=== PATIENT | female | born 1985 | race Caucasian/White ===

== ENCOUNTER 2016-10-13 20:56 | Emergency (ER) | payer MEDICAID ==
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
[2016-10-13 21:45] LABS: ABSOLUTE BASOPHILS # (AUTO) 0.1 10^3/uL (0.0-0.2); ABSOLUTE EOSINOPHILS # (AUTO) 0.1 10^3/uL (0.0-0.6); ABSOLUTE LYMPHOCYTES (AUTO) 2.1 10^3/uL (0.5-4.7); ABSOLUTE MONOCYTES (AUTO) 0.9 10^3/uL (0.1-1.4); ABSOLUTE NEUT (AUTO) 5.8 10^3/uL (1.7-8.2); BASOPHILS % (AUTO) 0.7 % (0-2); EOSINOPHILS % (AUTO) 1.2 % (0-6); HEMATOCRIT 40.5 % (36.0-47.0); HEMOGLOBIN 13.7 g/dL (12.0-15.5); HGB HCT DIFFERENCE 0.6; LYMPHOCYTES % (AUTO) 23.7 % (13-45); MEAN CORPUSCULAR HEMOGLOBIN 29.5 pg (27.0-33.4); MEAN CORPUSCULAR HGB CONC 33.9 g/dL (32.0-36.0); MEAN CORPUSCULAR VOLUME 87 fl (80-97); MONOCYTES % (AUTO) 10.1 % (3-13); RED BLOOD COUNT 4.66 10^6/uL (3.72-5.28); RED CELL DISTRIBUTION WIDTH 15.3 % (11.5-14.0); SEGMENTED NEUTROPHILS % (AUTO) 64.3 % (42-78)
[2016-10-13 22:03] LABS: ALANINE AMINOTRANSFERASE 85 U/L (9-52); ALBUMIN 4.3 g/dL (3.5-5.0); ALKALINE PHOSPHATASE 77 U/L (38-126); ANION GAP 12 (5-19); ASPARTATE AMINO TRANSFERASE 52 U/L (14-36); BILIRUBIN,TOTAL 0.6 mg/dL (0.2-1.3); BLOOD UREA NITROGEN 12 mg/dL (7-20); CARBON DIOXIDE 26 mmol/L (22-30); CHLORIDE 106 mmol/L (98-107); CREATININE RESULT 0.64 mg/dL (0.52-1.25); GLUCOSE 91 mg/dL (75-110); SODIUM 143.6 mmol/L (137-145); TOTAL PROTEIN 7.2 g/dL (6.3-8.2)
[2016-10-13 22:04] LABS: ALCOHOL < 10 mg/dL (NONE DETECTED)
[2016-10-13 22:38] LABS: APPEARANCE,URINE SLIGHTLY-CLOUDY; BILIRUBIN,URINE NEGATIVE (NEGATIVE); GLUCOSE, URINE NEGATIVE (NEGATIVE); KETONES,URINE NEGATIVE (NEGATIVE); LEUKOCYTE ESTERASE,URINE NEGATIVE (NEGATIVE); NITRITE,URINE NEGATIVE (NEGATIVE); PROTEIN,URINE NEGATIVE (NEGATIVE); URINE SPECIFIC GRAVITY 1.029
[2016-10-13 22:44] LABS: URINE BARBITURATES SCREEN NEGATIVE; URINE METHADONE SCREEN NEGATIVE; URINE OPIATES LOW UNCONFIRMED POSITIVE; URINE PHENCYCLIDINE SCREEN NEGATIVE
[2016-10-14] MEDS: IBUPROFEN 600 MG TABLET PO PRN ×2 (05:35→11:10)
--- NOTE | 2016-10-14 08:02 | EKG REPORT ---
SEVERITY:- NORMAL ECG - SINUS RHYTHM : Confirmed by: Chapincito Shah MD 14-Oct-2016 08:01:55
--- NOTE | 2016-10-14 10:20 | ER Document Report ---
Doctor's Note Notes: 10/14/16 10:19 Rounds: Chart reviewed and patient interviewed. Patient is smiling and interactive and appears to be very happy's morning. Denies feeling suicidal. Has not been on any medications recently, although she was on psychotropic medications in the past area she says she prefers not to take medications. Vital signs are all normal. Labs were positive for opiates and marijuana on her drug screen and very minor elevation of LFTs which is probably of no clinical significance. Patient appears to be medically stable for transfer or discharge. At this time, mental health has suggested patient will likely be discharged home today. Abraham Garcia M.D.
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
[2016-10-14] MEDS ORDERED: NICOTINE 14 MG/24 HR PATCH.TD24 TD ONE (12:48)
[2016-10-14 15:24] VITALS: BP 112/62
== END 2016-10-14 15:24 | disposition home or self-care (01) ==
LOC: ER 20:56
DX: R45.851 Suicidal ideations (principal); F31.9 Bipolar disorder, unspecified; F17.200 Nicotine dependence, unspecified, uncomplicated; Z98.51 Tubal ligation status
CPT/HCPCS: 93005; 99285; 36415; 80307 ×4; 84703; 85025; 80053; 81001; 93010; J3490 ×2

== ENCOUNTER → 2016-11-21 | Outpatient (CLI) | payer MEDICAID | LOC: LAB 16:59 | PROVIDERS: ATTEND Internal Medicine Gastroenterology | DX: R76.8 Other specified abnormal immunological findings in serum (principal) ==

== ENCOUNTER → 2016-11-26 | Outpatient (CLI) | payer MEDICAID ==
[2016-12-01 07:38] LABS: HCV ALPHA 2-MACROGLOBULINS QNT 191 mg/dL (110-276); HCV FIBROSIS SCORE 0.14 (0.00-0.21); HCV FIBROSURE ALT P5P 27 IU/L (0-40); HCV FIBROSURE GGT 22 IU/L (0-60); HCV FIBROSURE HAPTOGLOBIN 69 mg/dL (34-200); HCVFIB APOLIPOPROTEIN A-1 108 mg/dL (116-209); HEPATITIS C GENOTYPE 3 1a (.); NECROINFLAM ACTIVITY GRADE A0-No activity (.)
== END ==
LOC: OD 12:23
PROVIDERS: ATTEND Internal Medicine Gastroenterology
DX: R76.8 Other specified abnormal immunological findings in serum (principal)
CPT/HCPCS: 36415; 81270; 82172; 82247; 82977; 83010; 83883; 84460

== ENCOUNTER 2017-09-27 22:26 | Emergency (ER) | payer MEDICAID ==
[2017-09-27 23:52] LABS: APPEARANCE,URINE SLIGHTLY-CLOUDY; BILIRUBIN,URINE NEGATIVE (NEGATIVE); COLOR,URINE AMBER; GLUCOSE, URINE NEGATIVE (NEGATIVE); KETONES,URINE TRACE mg/dL (NEGATIVE); LEUKOCYTE ESTERASE,URINE NEGATIVE (NEGATIVE); NITRITE,URINE NEGATIVE (NEGATIVE); PROTEIN,URINE 30 mg/dL (NEGATIVE); URINE SPECIFIC GRAVITY 1.029
[2017-09-28 00:04] LABS: URINE BARBITURATES SCREEN NEGATIVE; URINE BENZODIAZEPINES SCREEN NEGATIVE; URINE COCAINE SCREEN UNCONFIRMED POSITIVE; URINE MARIJUANA (THC) SCREEN UNCONFIRMED POSITIVE; URINE METHADONE SCREEN NEGATIVE; URINE PHENCYCLIDINE SCREEN NEGATIVE
--- NOTE | 2017-09-28 00:18 | ER Document Report ---
ED General - General Chief Complaint: Psych Problem Stated Complaint: PSYCH EVAL Time Seen by Provider: 09/27/17 23:52 Notes: Patient is a 32-year-old female presents with complaint of multiple issues. She has a very hard time staying on topic and therefore the exact history is very hard to obtain. She will break midsentence and going to another topic. She does admit to long history of drug use. She says she is a lot of different drugs throughout her lifetime. Most recently she is on heroin and methamphetamine. She does admit that she has been diagnosed with bipolar and schizophrenia in the past. She is currently not on medications for this. She denies any recent fevers or infections. She says that she is not suicidal however she has thought about dying. She is unable to tell me when the last time she did heroin or meth is. When asked about hallucinations or hearing voices the patient initially says "yes". She then changes and says "I talked to myself and answer myself". TRAVEL OUTSIDE OF THE [place] IN LAST 30 DAYS: No - Related Data Allergies/Adverse Reactions: No Known Allergies Allergy (Verified 05/30/16 17:36) Past Medical History - Social History Smoking Status: Unknown if Ever Smoked Frequency of alcohol use: Occasional Drug Abuse: Heroin, Methamphetamine Family History: Reviewed & Not Pertinent - Past Medical History Cardiac Medical History: Denies: Hx Coronary Artery Disease, Hx Heart Attack, Hx Hypertension Pulmonary Medical History: Denies: Hx Asthma, Hx Bronchitis, Hx COPD, Hx Pneumonia Neurological Medical History: Denies: Hx Cerebrovascular Accident Musculoskeltal Medical History: Denies Hx Arthritis Psychiatric Medical History: Reports: Hx Bipolar Disorder Past Surgical History: Reports: Hx Tubal Ligation - Immunizations Hx Diphtheria, Pertussis, Tetanus Vaccination: No Review of Systems - Review of Systems Notes: My Normal Review Basic REVIEW OF SYSTEMS: CONSTITUTIONAL : Denies fever, chills, or sweats. Denies recent illness. EENT: Denies eye, ear, throat, or mouth pain or symptoms. Denies nasal or sinus congestion. RESPIRATORY: Denies cough, cold, or chest congestion. Denies shortness of breath, difficulty breathing, or wheezing. GASTROINTESTINAL: Denies abdominal pain. Denies nausea, vomiting, or diarrhea. Denies constipation. Last BM: GENITOURINARY: Denies difficulty urinating, painful urination, burning, frequency, or blood in urine. MUSCULOSKELETAL: Patient initially says that she has some body pain. She believes that this may be due to her history of heroin use. SKIN: Denies rash or skin lesions. NEUROLOGICAL: Denies altered mental status or loss of consciousness. Denies headache. Denies weakness or paralysis or loss of use of either side. Denies problems with gait or speech. Denies sensory or motor loss. Psychiatric: Flight of ideas. Chronic drug use. ALL OTHER SYSTEMS REVIEWED AND NEGATIVE. Physical Exam - Notes Notes: General Appearance: Well nourished, alert, cooperative, no acute distress, no obvious discomfort. Vitals: reviewed, See vital signs table. Eyes: PERRL, EOMI, Conjuctiva clear Lungs: No wheezing, No rales, No rhonci, No accessory muscle use, good air exchange bilaterally. Heart: Normal rate, Regular rythm, No murmur, no rub Abdomen: Normal BS, soft, No rigidity, No abdominal tenderness, No guarding, no rebound, no abdominal masses, no organomegaly Extremities: strength 5/5 in all extremities, good pulses in all extremities, no swelling or tenderness in the extremities, no edema. Skin: warm, dry, appropriate color, no rash Neuro: speech clear, oriented x 3,responds appropriately to questions. Patient has an odd affect and is hard to keep on topic. It is hard to get her answer questions with appropriate answers at times as she will go on to another topic that is different from the question that you actually answer. She this appears to be more psychiatric than anything. Cranial nerves II through XII are intact. She moves all extremities without difficulty. She has no evidence of focal neurologic deficits. Course - Re-evaluation Re-evalutation: 09/28/17 01:44 Patient is medically stable for psychiatric evaluation and placement. She presents with some flight of ideas and also history of current substance abuse and untreated bipolar disorder. Dictation of this chart was performed using voice recognition software; therefore, there may be some unintended grammatical errors. - Laboratory Result Diagrams: 09/28/17 00:42 09/28/17 00:42 Laboratory results interpreted by me: 09/27/17 09/28/17 09/28/17 23:39 00:42 00:42 WBC 11.3 H Urine Protein 30 H Urine Ketones TRACE H Urine Urobilinogen 2.0 H Urine Ascorbic Acid 40 H Salicylates < 1.0 L Acetaminophen < 10 L Discharge - Discharge Clinical Impression: Substance abuse, Phyllis
[2017-09-28 00:51] LABS: ABSOLUTE BASOPHILS # (AUTO) 0.1 10^3/uL (0.0-0.2); ABSOLUTE LYMPHOCYTES (AUTO) 2.3 10^3/uL (0.5-4.7); ABSOLUTE MONOCYTES (AUTO) 1.1 10^3/uL (0.1-1.4); ABSOLUTE NEUT (AUTO) 7.9 10^3/uL (1.7-8.2); BASOPHILS % (AUTO) 0.9 % (0-2); EOSINOPHILS % (AUTO) 0.2 % (0-6); HEMATOCRIT 39.4 % (36.0-47.0); HEMOGLOBIN 13.1 g/dL (12.0-15.5); MEAN CORPUSCULAR HEMOGLOBIN 29.1 pg (27.0-33.4); MEAN CORPUSCULAR HGB CONC 33.3 g/dL (32.0-36.0); MEAN CORPUSCULAR VOLUME 88 fl (80-97); MONOCYTES % (AUTO) 9.4 % (3-13); PLATELET COUNT 366 10^3/uL (150-450); RED CELL DISTRIBUTION WIDTH 13.7 % (11.5-14.0); SEGMENTED NEUTROPHILS % (AUTO) 69.5 % (42-78); TOTAL CELLS COUNTED % (AUTO) 100 %; WHITE BLOOD COUNT 11.3 10^3/uL (4.0-10.5)
[2017-09-28 01:27] LABS: ALANINE AMINOTRANSFERASE 40 U/L (9-52); ALBUMIN 4.6 g/dL (3.5-5.0); ALKALINE PHOSPHATASE 72 U/L (38-126); ANION GAP 9 (5-19); ASPARTATE AMINO TRANSFERASE 23 U/L (14-36); BILIRUBIN,DIRECT 0.4 mg/dL (0.0-0.4); BILIRUBIN,TOTAL 0.6 mg/dL (0.2-1.3); BLOOD UREA NITROGEN 9 mg/dL (7-20); CALCIUM 10.1 mg/dL (8.4-10.2); CARBON DIOXIDE 25 mmol/L (22-30); CHLORIDE 106 mmol/L (98-107); GLUCOSE 99 mg/dL (75-110); POTASSIUM 3.9 mmol/L (3.6-5.0); TOTAL PROTEIN 8.1 g/dL (6.3-8.2)
[2017-09-28 01:29] LABS: ACETAMINOPHEN < 10 ug/mL (10-30); ALCOHOL < 10 mg/dL (NONE DETECTED); SALICYLATE < 1.0 mg/dL (2.0-20.0)
--- NOTE | 2017-09-28 07:51 | EKG REPORT ---
SEVERITY:- NORMAL ECG - SINUS RHYTHM : Confirmed by: Chapincito Shah MD 28-Sep-2017 07:50:26
--- NOTE | 2017-09-28 09:20 | ER Document Report ---
Doctor's Note Notes: 09/28/17 09:19 32-year-old female with past medical history possibly of bipolar and schizophrenia, intermittent drug abuse who presents initially with multiple medical problems. From a medical evaluation the patient has been cleared. Drug screen is recorded. Vital signs stable. Patient currently denies any homicidal or suicidal ideations. She denies any pain. She denies any auditory or visual hallucinations. Psychology team will evaluate the patient. I believe if the patient stops drug abuse, is possibly started on a low-dose psychiatry medication with outpatient follow-up, patient can be safely discharged home this afternoon. 09/28/17 10:50 Patient is very calm and cooperative. She has no flight of ideas. She has no hallucinations. She denies any suicidal ideations. She states that she does have 3 children. 2 of them have been adopted are under control of her parents. One is living with the current father that she also lives with. Patient is very eager to receive drug treatment. She now states her second psychological evaluation as an outpatient she was told that she did not have bipolar schizophrenia but most likely anxiety and drug related psychosis. Given that the patient has no psychotic features at this time, we will contact family to make sure that they are comfortable with the patient going home. We will contact child protective services as is her duty. We will discharge the patient home with strict return precautions and follow-up.
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
[2017-09-28 15:41] VITALS: BP 114/59
== END 2017-09-28 15:41 | disposition home or self-care (01) ==
LOC: ER 22:26
DX: F11.10 Opioid abuse, uncomplicated (principal); F15.10 Other stimulant abuse, uncomplicated; F31.9 Bipolar disorder, unspecified
CPT/HCPCS: 36415; 80053; 80307; 81001; 84703; 85025; 93005; 93010; 99285

== ENCOUNTER 2019-10-24 20:23 | Inpatient (IN) | payer SELFPAY ==
[2019-10-24] MEDS ORDERED: NORMAL SALINE 1000 ML 1,000 ML IV ONE ×2 (20:46→21:13)
--- NOTE | 2019-10-24 20:48 | ER Document Report ---
ED Medical Screen (RME) - General Chief Complaint: Hand Swelling Stated Complaint: LEFT HAND PAIN/SWELLING Time Seen by Provider: 10/24/19 20:44 Primary Care Provider: MARÍA RAMOS [Primary Care Provider] - Follow up as needed Notes: Patient presents with left hand pain and swelling for the past 2 days. Patient reports shooting up ice in her left hand a week ago. Patient states that she last shot up ice this morning. Patient tachycardic in triage. Patient with large abscess to the dorsum of the left hand. I have greeted and performed a rapid initial assessment of this patient. A comprehensive ED assessment and evaluation of the patient, analysis of test results and completion of the medical decision making process will be conducted by additional ED providers. TRAVEL OUTSIDE OF THE [place] IN LAST 30 DAYS: No - Related Data Allergies/Adverse Reactions: No Known Allergies Allergy (Verified 11/22/18 02:28) Past Medical History - Past Medical History Cardiac Medical History: Reports: Hx Atrial Fibrillation Denies: Hx Coronary Artery Disease, Hx Heart Attack, Hx Hypertension Pulmonary Medical History: Denies: Hx Asthma, Hx Bronchitis, Hx COPD, Hx Pneumonia Neurological Medical History: Denies: Hx Cerebrovascular Accident Renal/ Medical History: Denies: Hx Peritoneal Dialysis Musculoskeltal Medical History: Denies Hx Arthritis Psychiatric Medical History: Reports: Hx Bipolar Disorder Past Surgical History: Reports: Hx Tubal Ligation - Immunizations Hx Diphtheria, Pertussis, Tetanus Vaccination: No Physical Exam - Cardiovascular Rhythm: Tachycardia Heart sounds: S1 appreciated, S2 appreciated - Skin Skin irregularity: Abscess - Dorsal left hand Doctor's Discharge - Discharge Referrals: MARÍA RAMOS [Primary Care Provider] - Follow up as needed
[2019-10-24] MEDS ORDERED: VANCOMYCIN HCL INJ 1000 MG VIAL IV ONE (21:13)
--- NOTE | 2019-10-24 22:06 | EKG REPORT ---
SEVERITY:- OTHERWISE NORMAL ECG - SINUS TACHYCARDIA : Confirmed by: Chapincito Shah MD 24-Oct-2019 22:05:47
[2019-10-24 22:11] LABS: ABSOLUTE LYMPHOCYTES (AUTO) 0.4 10^3/uL (0.5-4.7); ABSOLUTE NEUT (AUTO) 6.4 10^3/uL (1.7-8.2); BASOPHILS % (AUTO) 0.1 % (0-2); EOSINOPHILS % (AUTO) 0.3 % (0-6); HEMATOCRIT 35.7 % (36.0-47.0); HEMOGLOBIN 11.9 g/dL (12.0-15.5); LYMPHOCYTES % (AUTO) 5.9 % (13-45); MEAN CORPUSCULAR HEMOGLOBIN 27.8 pg (27.0-33.4); MEAN CORPUSCULAR HGB CONC 33.4 g/dL (32.0-36.0); MEAN CORPUSCULAR VOLUME 83 fl (80-97); MONOCYTES % (AUTO) 0.5 % (3-13); PLATELET COUNT 317 10^3/uL (150-450); RED BLOOD COUNT 4.28 10^6/uL (3.72-5.28); RED CELL DISTRIBUTION WIDTH 14.4 % (11.5-14.0); SEGMENTED NEUTROPHILS % (AUTO) 93.2 % (42-78); TOTAL CELLS COUNTED % (AUTO) 100 %; WHITE BLOOD COUNT 6.8 10^3/uL (4.0-10.5)
--- NOTE | 2019-10-24 22:20 | ER Document Report ---
ED General - General Chief Complaint: Hand Pain Stated Complaint: LEFT HAND PAIN/SWELLING Time Seen by Provider: 10/24/19 20:44 Primary Care Provider: MARÍA RAMOS [Primary Care Provider] - Follow up as needed TRAVEL OUTSIDE OF THE [place] IN LAST 30 DAYS: No - HPI Notes: Patient is a 34-year-old female who presents to the emergency department for evaluation of left hand swelling. She admits to injecting methamphetamine into that hand about a week ago. She states the swelling is been present for the last 2 days. She has had no fevers or chills, but she has had hot and cold flashes. She denies any nausea or vomiting. She is had increased pain and swelling over the last 48 hours in the hand, currently she rates the pain a 4 out of 5. She admits to injecting both methamphetamine and heroin earlier today. - Related Data Allergies/Adverse Reactions: No Known Allergies Allergy (Verified 11/22/18 02:28) Past Medical History - General Information source: Patient - Social History Smoking Status: Current Every Day Smoker Chew tobacco use (# tins/day): No Frequency of alcohol use: Occasional Drug Abuse: Heroin, Marijuana, Methamphetamine, Prescription drugs Family History: Reviewed & Not Pertinent Patient has suicidal ideation: No Patient has homicidal ideation: No - Past Medical History Cardiac Medical History: Denies: Hx Coronary Artery Disease, Hx Heart Attack, Hx Hypertension Pulmonary Medical History: Denies: Hx Asthma, Hx Bronchitis, Hx COPD, Hx Pneumonia Neurological Medical History: Denies: Hx Cerebrovascular Accident Renal/ Medical History: Denies: Hx Peritoneal Dialysis Musculoskeletal Medical History: Denies Hx Arthritis Psychiatric Medical History: Reports: Hx Bipolar Disorder Past Surgical History: Reports: Hx Tubal Ligation - Immunizations Hx Diphtheria, Pertussis, Tetanus Vaccination: No Review of Systems - Review of Systems Constitutional: See HPI Skin: See HPI Physical Exam - Vital signs Vitals: Temp Pulse Resp BP Pulse Ox 98.2 F 160 H 20 123/53 L 98 10/24/19 20:24 10/24/19 20:24 10/24/19 20:24 10/24/19 20:24 10/24/19 20:24 - Notes Notes: This is a 34-year-old female who appears older than her stated age, no acute distress. Vital signs reviewed, please refer to chart. Head is normocephalic, atraumatic. Pupils equal round, reactive to light, measuring only 3 mm, consistent with opiate intoxication. Neck is supple without meningismus. Heart is tachycardic with normal S1, S2. Lungs are clear to auscultation bilaterally. Abdomen is soft, nontender, normoactive bowel sounds throughout. Extremities without cyanosis, clubbing. Posterior calves are nontender. Peripheral pulses are equal. Examination of the left upper extremity yields a moderate amount of edema over the left distal forearm, wrist, hand. She has fluctuance over the dorsum of the lfet proximal hand with associated calor, consistent with abscess and cellulitis. She has full range of motion of the elbow, wrist, fingers, thumb. Radial pulse 2+, capillary refill is brisk, sensation is intact. Patient is disheveled with mildly slurred speech, consistent with intoxication. Course - Re-evaluation Re-evalutation: 10/24/19 22:18 Patient presents to the emergency department for evaluation. On arrival she is found to be markedly tachycardic with a heart rate of 160. Based on this I did order a septic work-up. Urinalysis and urine drug screen ordered as well. Given the diffuse edema to the distal aspect of her hand I did order a CT scan of her left upper extremity to evaluate for deep involvement of any potential abscess. Patient is given IV fluids. She is covered with vancomycin IV. We will continue to monitor. 10/25/19 00:04 CT scan in fact reveals a 4 cm abscess over the dorsum of the hand. She has e xtensive cellulitis surrounding. Her lab work is overall unremarkable. Despite adequate fluid resuscitation, patient's heart rate remains in the 130s. I am concerned that this patient is first unreliable, but also could potentially already be bacteremic given her elevated heart rate. She tolerated the vancomycin well. I spoke with Dr. Desai, who will be consulted for I&D of this abscess. He will see her tomorrow. Dr. Ramos will admit the patient for further care. - Vital Signs Vital signs: Temp Pulse Resp BP Pulse Ox 98.2 F 160 H 20 123/53 L 98 10/24/19 20:24 10/24/19 20:24 10/24/19 20:24 10/24/19 20:24 10/24/19 20:24 - Laboratory Result Diagrams: 10/24/19 21:15 10/24/19 21:15 Laboratory results interpreted by me: 10/24/19 10/24/19 10/24/19 21:15 21:15 23:14 Hgb 11.9 L Hct 35.7 L RDW 14.4 H Lymph % (Auto) 5.9 L [place] % (Auto) 0.5 L Absolute Lymphs (auto) 0.4 L Absolute Monos (auto) 0.0 L Seg Neutrophils % 93.2 H Sodium 135.9 L Urine Protein 100 H Ur Leukocyte Esterase SMALL H - Diagnostic Test Radiology reviewed: Image reviewed, Reports reviewed Radiology results interpreted by me: 10/25/19 00:05 Chest X-Ray 10/24/19 20:46 IMPRESSION: No acute cardiopulmonary abnormalities. Hand X-Ray 10/24/19 20:46 IMPRESSION: Diffuse swelling of the dorsal and palmar aspect of the hand, possibly extending to the digits raising the concern for edema and/or cellulitis of uncertain etiology. Upper Extremity CT 10/24/19 21:14 IMPRESSION: 4 cm abscess overlying the dorsum of the left hand. - EKG Interpretation by Me Additional EKG results interpreted by me: 10/25/19 00:06 Sinus tachycardia with a rate of 156 bpm. Normal axis and intervals. No acute ST changes concerning for ischemia or infarction. Discharge - Discharge Clinical Impression: Abscess of left hand, Cellulitis of left hand, Tachycardia Condition: Stable Disposition: ADMITTED INPATIENT Admitting Provider: Richard (Hospitalist) Unit Admitted: Telemetry Referrals: MARÍA RAMOS [Primary Care Provider] - Follow up as needed
[2019-10-24 22:21] LABS: VENOUS BLOOD BASE EXCESS -3.1 mmol/L; VENOUS BLOOD HCO3 22.7 mmol/L (20-32); VENOUS BLOOD PCO2 43.3 mmHg (35-63); VENOUS BLOOD PH 7.34 (7.30-7.42)
[2019-10-24 22:25] LABS: ALBUMIN 3.5 g/dL (3.5-5.0); ALKALINE PHOSPHATASE 84 U/L (38-126); ANION GAP 9 (5-19); ASPARTATE AMINO TRANSFERASE 27 U/L (14-36); BILIRUBIN,TOTAL 0.3 mg/dL (0.2-1.3); BLOOD UREA NITROGEN 9 mg/dL (7-20); CALCIUM 8.9 mg/dL (8.4-10.2); CARBON DIOXIDE 22 mmol/L (22-30); CHLORIDE 105 mmol/L (98-107); GLUCOSE 87 mg/dL (75-110); TOTAL PROTEIN 7.1 g/dL (6.3-8.2)
--- NOTE | 2019-10-24 23:04 | RADIOLOGY REPORT (SQ) ---
EXAM DESCRIPTION: XR HAND 3 OR MORE VIEWS COMPLETED DATE/TME: 10/24/2019 20:46 CLINICAL INDICATION: 34-year-old female with LEFT hand swelling. TECHNIQUE: Three views LEFT hand were obtained in AP, lateral and oblique projections COMPARISON: None. FINDINGS: There is no fracture or dislocation. The joint spaces are preserved. Diffuse swelling of the dorsal and palmar aspect of the hand, possibly extending to the digits raising the concern for edema and/or cellulitis of uncertain etiology. IMPRESSION: Diffuse swelling of the dorsal and palmar aspect of the hand, possibly extending to the digits raising the concern for edema and/or cellulitis of uncertain etiology.
--- NOTE | 2019-10-24 23:06 | RADIOLOGY REPORT (SQ) ---
EXAM DESCRIPTION: XR CHEST 1 VIEW COMPLETED DATE/TME: 10/24/2019 20:46 CLINICAL INDICATION: 34-year-old female with tachycardia. TECHNIQUE: Single view, AP portable chest was obtained. COMPARISON: None. FINDINGS: Unremarkable cardiac and mediastinal silhouette. Heart size is normal. Lungs are clear without focal opacity, pneumothorax or pleural effusions. The visualized bones are within normal limits. IMPRESSION: No acute cardiopulmonary abnormalities.
[2019-10-24 23:32] LABS: APPEARANCE,URINE CLOUDY; BILIRUBIN,URINE NEGATIVE (NEGATIVE); COLOR,URINE YELLOW; GLUCOSE, URINE NEGATIVE (NEGATIVE); KETONES,URINE NEGATIVE (NEGATIVE); LEUKOCYTE ESTERASE,URINE SMALL (NEGATIVE); NITRITE,URINE NEGATIVE (NEGATIVE); PROTEIN,URINE 100 mg/dL (NEGATIVE); URINE SPECIFIC GRAVITY 1.026; UROBILINOGEN,URINE NEGATIVE mg/dL (<2.0)
[2019-10-24 23:45] LABS: URINE BARBITURATES SCREEN NEGATIVE; URINE BENZODIAZEPINES SCREEN NEGATIVE; URINE COCAINE SCREEN NEGATIVE; URINE METHADONE SCREEN NEGATIVE; URINE PHENCYCLIDINE SCREEN NEGATIVE
--- NOTE | 2019-10-24 23:46 | RADIOLOGY REPORT (SQ) ---
CT UPPER EXTREMITY WITH IV CONTRAST EXAM DATE: 10/24/2019 9:14 PM CDT HISTORY: Abscess COMPARISON: None. TECHNIQUE: CT scan of the left upper extremity with IV contrast. This exam was performed according to our departmental dose-optimization program, which includes automated exposure control, adjustment of the mA and/or kV according to patient size and/or use of iterative reconstruction technique. FINDINGS: There is a focal rim-enhancing fluid collection overlying the dorsum of the left hand which measures approximately 3.9 x 1.3 cm. There is diffuse surrounding subcutaneous edema. The muscles and tendons are grossly intact. No acute fracture, dislocation, or osteomyelitis. No foreign body is evident. The joint spaces are preserved. IMPRESSION: 4 cm abscess overlying the dorsum of the left hand.
[2019-10-25] MEDS ORDERED: ACETAMINOPHEN 325 MG TABLET PO PRN (00:01)
[2019-10-25] MEDS ORDERED: IPRATROPIUM/ALBUTEROL 0.5-2.5 MG/3 ML AMPUL NEB PRN (00:01)
[2019-10-25] MEDS ORDERED: MAG HYDROX/AL HYDROX/SIMETH SUSP 30 ML UDCUP PO PRN (00:01)
[2019-10-25] MEDS ORDERED: ONDANSETRON HCL INJ/PF 4 MG/2 ML SDV IV PRN (00:01)
[2019-10-25 00:12] LABS: URINE MARIJUANA (THC) SCREEN UNCONFIRMED POSITIVE
[2019-10-25] MEDS ORDERED: VANCOMYCIN HCL 0 MG in DEXTROSE 5%-WATER 250 ML IV NR (00:15)
[2019-10-25] MEDS ORDERED: CEFTRIAXONE 1 GM/D5W RTU 1 GM/50 ML RTUPB IV ONE (01:00)
[2019-10-25] MEDS: KETOROLAC TROMETHAMINE INJ/PF 30 MG/1 ML SDV IV PRN ×2 (01:00→13:07)
[2019-10-25] MEDS: NORMAL SALINE 1000 ML 1,000 ML IV PRN ×2 (01:51→09:14)
[2019-10-25] MEDS: HEPARIN SOD (PORCINE) 5,000 UNIT/ML 1 ML VIAL SUBCUT SCH ×3 (05:30→21:14)
--- NOTE | 2019-10-25 05:31 | PDOC H&P ---
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 She presents with 48 hours of pain and swelling to the dorsum of her left hand. In the emergency department she is found extensive and widespread needle scarring and a 4 cm abscess to the dorsum of the hand by CT. Patient admits to regular and frequent use of any convenient vein access. Orthopedic surgery is consulted and she is referred to the hospitalist for admission. She denies prescribed treatment of anxiety or depression. Past Medical History Cardiac Medical History: Reports: Atrial Fibrillation Denies: Coronary Artery Disease, Myocardial Infarction, Hypertension Pulmonary Medical History: Denies: Asthma, Bronchitis, Chronic Obstructive Pulmonary Disease (COPD), Pneumonia Musculoskeltal Medical History: Denies: Arthritis Psychiatric Medical History: Reports: Bipolar Disorder, Depression Hematology: Denies: Anemia Past Surgical History Past Surgical History: Reports: Tubal Ligation Social History Information Source: Patient Smoking Status: Current Every Day Smoker Electronic Cigarette use?: No Frequency of Alcohol Use: Rare Hx Recreational Drug Use: Yes Drugs: Heroin, Marijuana, Other - Amphetamine Hx Prescription Drug Abuse: No - Advance Directive Resuscitation Status: Full Code Family History Family History: COPD, Hypertension Parental Family History Reviewed: Yes Children Family History Reviewed: Yes Sibling(s) Family History Reviewed.: Yes Medication/Allergy Home Medications: Cephalexin Monohydrate [Keflex 500 mg Capsule] 500 mg PO TID 5 Days #18 capsule 11/22/18 Allergies/Adverse Reactions: No Known Allergies Allergy (Verified 11/22/18 02:28) Review of Systems Constitutional: PRESENT: as per HPI, anorexia, fatigue. ABSENT: chills, fever(s), headache(s), night sweats, weight gain, weight loss Eyes: ABSENT: visual disturbances Ears: ABSENT: hearing changes Cardiovascular: ABSENT: chest pain, dyspnea on exertion, edema, orthropnea, palpitations Respiratory: ABSENT: cough, hemoptysis Gastrointestinal: ABSENT: abdominal pain, constipation, diarrhea, hematemesis, hematochezia, nausea, vomiting Genitourinary: ABSENT: dysuria, hematuria Musculoskeletal: ABSENT: joint swelling Integumentary: ABSENT: rash, wounds Neurological: ABSENT: abnormal gait, abnormal speech, confusion, dizziness, focal weakness, syncope Psychiatric: ABSENT: anxiety, depression, homidical ideation, suicidal ideation Endocrine: ABSENT: cold intolerance, heat intolerance, polydipsia, polyuria Hematologic/Lymphatic: ABSENT: easy bleeding, easy bruising Physical Exam Vital Signs: Temp Pulse Resp BP Pulse Ox 98.4 F 120 H 16 117/63 96 10/25/19 01:32 10/25/19 01:32 10/25/19 01:32 10/25/19 01:32 10/25/19 01:32 Intake & Output 10/23/19 10/24/19 10/25/19 11:59 11:59 11:59 Intake Total 2049 Balance 2049 Weight 56.7 kg General appearance: PRESENT: cooperative, disheveled, mild distress, other - Disheveled Head exam: PRESENT: atraumatic, normocephalic Eye exam: PRESENT: conjunctiva pink, EOMI, PERRLA. ABSENT: scleral icterus Ear exam: PRESENT: normal external ear exam Mouth exam: PRESENT: moist, tongue midline Neck exam: ABSENT: carotid bruit, JVD, lymphadenopathy, thyromegaly Respiratory exam: PRESENT: clear to auscultation balwinder. ABSENT: rales, rhonchi, wheezes Cardiovascular exam: PRESENT: RRR. ABSENT: diastolic murmur, gallop, rubs, systolic murmur Pulses: PRESENT: normal dorsalis pedis pul Vascular exam: PRESENT: normal capillary refill GI/Abdominal exam: PRESENT: normal bowel sounds, soft. ABSENT: distended, guarding, mass, organolmegaly, rebound, tenderness Rectal exam: PRESENT: deferred Extremities exam: PRESENT: other - Widespread needle track scarring Neurological exam: PRESENT: alert, awake, oriented to person, oriented to place, oriented to time, oriented to situation, CN II-XII grossly intact. ABSENT: motor sensory deficit Psychiatric exam: PRESENT: appropriate affect, normal mood. ABSENT: homicidal ideation, suicidal ideation Skin exam: PRESENT: other - Widespread needle track scarring and swelling to the dorsum of the left hand Results Laboratory Results: 10/24/19 21:15 10/24/19 21:15 10/24/19 10/24/19 10/24/19 21:15 21:15 21:15 WBC 6.8 RBC 4.28 Hgb 11.9 L Hct 35.7 L MCV 83 MCH 27.8 MCHC 33.4 RDW 14.4 H Plt Count 317 Seg Neutrophils % 93.2 H VBG pH VBG pCO2 VBG HCO3 VBG Base Excess Sodium 135.9 L Potassium 4.0 Chloride 105 Carbon Dioxide 22 Anion Gap 9 BUN 9 Creatinine 0.70 Est GFR ( Amer) > 60 Glucose 87 Lactic Acid 1.3 Calcium 8.9 Magnesium 1.8 Total Bilirubin 0.3 AST 27 Alkaline Phosphatase 84 Total Protein 7.1 Albumin 3.5 Serum HCG, Qual Urine Color Urine Appearance Urine pH Ur Specific [place] Urine Protein Urine Glucose (UA) Urine Ketones Urine Blood Urine Nitrite Ur Leukocyte Esterase Urine WBC (Auto) Urine RBC (Auto) 10/24/19 10/24/19 10/24/19 21:15 22:10 23:14 WBC RBC Hgb Hct MCV MCH MCHC RDW Plt Count Seg Neutrophils % VBG pH 7.34 VBG pCO2 43.3 VBG HCO3 22.7 VBG Base Excess -3.1 Sodium Potassium Chloride Carbon Dioxide Anion Gap BUN Creatinine Est GFR ( Amer) Glucose Lactic Acid Calcium Magnesium Total Bilirubin AST Alkaline Phosphatase Total Protein Albumin Serum HCG, Qual NEGATIVE Urine Color YELLOW Urine Appearance CLOUDY Urine pH 5.0 Ur Specific [place] 1.026 Urine Protein 100 H Urine Glucose (UA) NEGATIVE Urine Ketones NEGATIVE Urine Blood NEGATIVE Urine Nitrite NEGATIVE Ur Leukocyte Esterase SMALL H Urine WBC (Auto) 16 Urine RBC (Auto) 8 Impressions: Chest X-Ray 10/24/19 20:46 IMPRESSION: No acute cardiopulmonary abnormalities. Hand X-Ray 10/24/19 20:46 IMPRESSION: Diffuse swelling of the dorsal and palmar aspect of the hand, possibly extending to the digits raising the concern for edema and/or cellulitis of uncertain etiology. Upper Extremity CT 10/24/19 21:14 IMPRESSION: 4 cm abscess overlying the dorsum of the left hand. Assessment and Plan - Diagnosis (1) Abscess of left hand Is this a current diagnosis for this admission?: Yes Plan: Complicated by IV drug use, continue IV vancomycin, Rocephin, follow-up orthopedic surgery consult, CBC, blood and wound culture (2) IV drug user Is this a current diagnosis for this admission?: Yes Plan: No cardiac murmur, minimize narcotics but wean preventing cortney withdrawal (3) Depression with anxiety Is this a current diagnosis for this admission?: Yes Plan: Nate Mcginnis (4) Tobacco abuse Is this a current diagnosis for this admission?: Yes Plan: Tobacco cessation counseling performed, nicotine replacement options discussed. - Time Time Spent with patient: 25-34 minutes - Inpatient Certification Medical Necessity: Need Close Monitoring Due to Risk of Patient Decompensation
[2019-10-25 05:48] LABS: ABSOLUTE BASOPHILS # (AUTO) 0.1 10^3/uL (0.0-0.2); ABSOLUTE LYMPHOCYTES (AUTO) 1.2 10^3/uL (0.5-4.7); ABSOLUTE MONOCYTES (AUTO) 0.7 10^3/uL (0.1-1.4); ABSOLUTE NEUT (AUTO) 13.7 10^3/uL (1.7-8.2); BASOPHILS % (AUTO) 0.4 % (0-2); EOSINOPHILS % (AUTO) 0.3 % (0-6); HEMATOCRIT 32.2 % (36.0-47.0); HEMOGLOBIN 10.7 g/dL (12.0-15.5); LYMPHOCYTES % (AUTO) 7.5 % (13-45); MEAN CORPUSCULAR HEMOGLOBIN 27.7 pg (27.0-33.4); MEAN CORPUSCULAR HGB CONC 33.2 g/dL (32.0-36.0); MEAN CORPUSCULAR VOLUME 83 fl (80-97); MONOCYTES % (AUTO) 4.5 % (3-13); PLATELET COUNT 305 10^3/uL (150-450); RED BLOOD COUNT 3.86 10^6/uL (3.72-5.28); RED CELL DISTRIBUTION WIDTH 14.3 % (11.5-14.0); SEGMENTED NEUTROPHILS % (AUTO) 87.3 % (42-78); TOTAL CELLS COUNTED % (AUTO) 100 %
[2019-10-25 05:49] LABS: WHITE BLOOD COUNT 15.7 10^3/uL (4.0-10.5)
--- NOTE | 2019-10-25 07:40 | PDOC CONSULTATION ---
Consultation Consult Date: 10/25/19 Provider Consulted: HARRIET JOHN JR History of Present Illness Admission Date/PCP: 10/25/19 00:20 MARÍA RAMOS History of Present Illness: DALLAS WAAN is a 34 year old female who presented to the emergency department after 2 days of swelling on the left hand. She has multiple prior history of I&D's performed on her upper extremities for similar abscesses in association with her IV drug abuse. She has a history of depression anxiety tobacco IV drug abuse of amphetamine and heroin. The patient had a CT scan in the emergency department shows a 4 cm abscess on the dorsum of the hand. She denies any fever chills night sweats. Reports severe pain to the left hand that is swollen, tense, 8 out of 10 worse with any pressure improved with rest and pain medication. She reports injecting at any site where she can find a vein including recent injections to her left hand. Past Medical History Cardiac Medical History: Reports: Atrial Fibrillation Denies: Coronary Artery Disease, Myocardial Infarction, Hypertension Pulmonary Medical History: Denies: Asthma, Bronchitis, Chronic Obstructive Pulmonary Disease (COPD), Pneumonia Musculoskeltal Medical History: Denies: Arthritis Psychiatric Medical History: Reports: Bipolar Disorder, Depression Hematology: Denies: Anemia Past Surgical History Past Surgical History: Reports: Tubal Ligation Social History Smoking Status: Current Every Day Smoker Electronic Cigarette use?: No Frequency of Alcohol Use: Rare Hx Recreational Drug Use: Yes Drugs: Heroin, Marijuana, Other - Amphetamine Hx Prescription Drug Abuse: No - Advance Directive Resuscitation Status: Full Code Family History Family History: COPD, Hypertension Parental Family History Reviewed: No Children Family History Reviewed: NA Sibling(s) Family History Reviewed.: NA Medication/Allergy Allergies/Adverse Reactions: No Known Allergies Allergy (Verified 11/22/18 02:28) Review of Systems Review of Systems: Constitutional: ABSENT: anorexia, chills, night sweats Cardiovascular: ABSENT: chest pain Respiratory: ABSENT: dyspnea Gastrointestinal: ABSENT: vomiting Genitourinary: ABSENT: dysuria Integumentary: ABSENT: rash Neurological: ABSENT: confusion, memory loss, numbness Psychiatric: ABSENT: hallucinations Hematologic/Lymphatic: ABSENT: easy bleeding All negative as above aside from that reported in the HPI Physical Exam Vital Signs: Temp Pulse Resp BP Pulse Ox 97.4 F 88 16 106/68 99 10/25/19 07:14 10/25/19 07:14 10/25/19 07:14 10/25/19 07:14 10/25/19 07:14 Intake & Output 10/24/19 10/25/19 10/26/19 06:59 06:59 06:59 Intake Total 2049 Balance 2049 Weight 62.9 kg Physical Exam: General appearance: PRESENT: no acute distress, cooperative, ill appearing Head exam: PRESENT: atraumatic, normocephalic Eye exam: PRESENT: EOMI Ear exam: PRESENT: normal external ear exam Mouth exam: PRESENT: neck supple Neck exam: ABSENT: tracheal deviation Respiratory exam: PRESENT: symmetrical, unlabored. ABSENT: accessory muscle use, wheezes Pulses: PRESENT: normal radial pulses, normal dorsalis pedis pulse Vascular exam: PRESENT: normal capillary refill GI/Abdominal exam: ABSENT: distended, firm Extremities exam: PRESENT: full ROM of bilateral shoulders, elbows wrists, knees, hips and ankles without pain aside from the left wrist that is painful with any range of motion or palpation. Musculoskeletal exam: PRESENT: full ROM, normal inspection of all 4 extremities aside from that noted below. Neurological exam: PRESENT: alert, awake, oriented to person, oriented to place, oriented to time Psychiatric exam: PRESENT: appropriate affect. ABSENT: agitated Focused psych exam: ABSENT: catatonic Skin exam: PRESENT: intact. ABSENT: dry. She has multiple excoriations, track hutchins, and small scabs throughout her body. All as above aside from that noted in the HPI and the following: Left upper extremity Grossly neurovascular intact to radial median ulnar nerve AIN PIN. There is a tense swollen abscess that is located over the dorsum of the left hand and proximally up to the wrist. There is induration present, no open wound, no overt nidus for the abscess. Capillary refill is less than 2 seconds Pain with any range of motion of the hand or wrist, pain with palpation Results Laboratory Results: 10/25/19 05:20 10/24/19 21:15 10/24/19 10/24/19 10/24/19 21:15 21:15 21:15 WBC 6.8 RBC 4.28 Hgb 11.9 L Hct 35.7 L MCV 83 MCH 27.8 MCHC 33.4 RDW 14.4 H Plt Count 317 Seg Neutrophils % 93.2 H VBG pH VBG pCO2 VBG HCO3 VBG Base Excess Sodium 135.9 L Potassium 4.0 Chloride 105 Carbon Dioxide 22 Anion Gap 9 BUN 9 Creatinine 0.70 Est GFR ( Amer) > 60 Glucose 87 Lactic Acid 1.3 Calcium 8.9 Magnesium 1.8 Total Bilirubin 0.3 AST 27 Alkaline Phosphatase 84 Total Protein 7.1 Albumin 3.5 Serum HCG, Qual Urine Color Urine Appearance Urine pH Ur Specific [place] Urine Protein Urine Glucose (UA) Urine Ketones Urine Blood Urine Nitrite Ur Leukocyte Esterase Urine WBC (Auto) Urine RBC (Auto) 10/24/19 10/24/19 10/24/19 21:15 22:10 23:14 WBC RBC Hgb Hct MCV MCH MCHC RDW Plt Count Seg Neutrophils % VBG pH 7.34 VBG pCO2 43.3 VBG HCO3 22.7 VBG Base Excess -3.1 Sodium Potassium Chloride Carbon Dioxide Anion Gap BUN Creatinine Est GFR ( Amer) Glucose Lactic Acid Calcium Magnesium Total Bilirubin AST Alkaline Phosphatase Total Protein Albumin Serum HCG, Qual NEGATIVE Urine Color YELLOW Urine Appearance CLOUDY Urine pH 5.0 Ur Specific [place] 1.026 Urine Protein 100 H Urine Glucose (UA) NEGATIVE Urine Ketones NEGATIVE Urine Blood NEGATIVE Urine Nitrite NEGATIVE Ur Leukocyte Esterase SMALL H Urine WBC (Auto) 16 Urine RBC (Auto) 8 10/25/19 05:20 WBC 15.7 H D RBC 3.86 Hgb 10.7 L Hct 32.2 L MCV 83 MCH 27.7 MCHC 33.2 RDW 14.3 H Plt Count 305 Seg Neutrophils % 87.3 H VBG pH VBG pCO2 VBG HCO3 VBG Base Excess Sodium Potassium Chloride Carbon Dioxide Anion Gap BUN Creatinine Est GFR ( Amer) Glucose Lactic Acid Calcium Magnesium Total Bilirubin AST Alkaline Phosphatase Total Protein Albumin Serum HCG, Qual Urine Color Urine Appearance Urine pH Ur Specific [place] Urine Protein Urine Glucose (UA) Urine Ketones Urine Blood Urine Nitrite Ur Leukocyte Esterase Urine WBC (Auto) Urine RBC (Auto) Impressions: Chest X-Ray 10/24/19 20:46 IMPRESSION: No acute cardiopulmonary abnormalities. Hand X-Ray 10/24/19 20:46 IMPRESSION: Diffuse swelling of the dorsal and palmar aspect of the hand, possibly extending to the digits raising the concern for edema and/or cellulitis of uncertain etiology. Upper Extremity CT 10/24/19 21:14 IMPRESSION: 4 cm abscess overlying the dorsum of the left hand. Assessment & Plan - Diagnosis (1) Abscess of left hand Is this a current diagnosis for this admission?: Yes Plan: Plan for I&D today of the left hand abscess We will need to continue his antibiotics postoperatively Will follow cultures postoperatively Dressing change as needed Would benefit from PT OT to encourage hand and wrist range of motion.
[2019-10-25] MEDS ORDERED: PROMETHAZINE HCL INJ 25 MG/1 ML VIAL IV PRN ×2 (07:51)
[2019-10-25] MEDS ORDERED: DIPHENHYDRAMINE HCL 50 MG/ML VIAL IV PRN (07:51)
[2019-10-25] MEDS ORDERED: FENTANYL CITRATE INJ/PF 100 MCG/2 ML AMPUL IV PRN ×3 (07:51)
[2019-10-25] MEDS ORDERED: OXYCODONE-ACETAMINOPHEN 5-325 MG TABLET PO PRN ×2 (07:51)
[2019-10-25] MEDS ORDERED: MEPERIDINE HCL/PF INJ 25 MG/1 ML DISP.SYRIN IV PRN (07:51)
[2019-10-25] MEDS ORDERED: CEFAZOLIN INJ 1 GM VIAL ONE (07:55)
[2019-10-25] MEDS ORDERED: BUPIVACAINE HCL 0.25 % INJ/PF (2.5 MG/1 ML) 30 ML VIAL ONE (07:56)
[2019-10-25] MEDS ORDERED: LIDOCAINE 1%/EPINEPHRINE INJ 20 ML VIAL ONE (07:56)
--- NOTE | 2019-10-25 09:28 | Operative Report ---
Operative Report DATE OF SURGERY: 10/25/19 PREOPERATIVE DIAGNOSIS: Left hand abscess POSTOPERATIVE DIAGNOSIS: Left hand abscess OPERATION: Left hand incision and drainage SURGEON: HARRIET JOHN JR ANESTHESIA: Moderate Sedation TISSUE REMOVED OR ALTERED: Cultures taken COMPLICATIONS: None ESTIMATED BLOOD LOSS: 10 cc PROCEDURE: The patient is a 34-year-old female who presents after a extensive history of IV drug abuse with multiple prior abscesses and surgical I&D's. She has a abscess to the left hand that occurred over the last 2 days. After discussing risks benefits treatment alternatives and answering all of her questions patient provided informed operative consent for left hand I&D. The patient was brought to the operating suite and placed under moderate sedation. She was on continuous antibiotics but 2 g of Ancef were given preoperatively as well. The left upper extremity was prepped and draped in sterile sterile fashion. A timeout was performed. The local area was anesthetized with a combination of lidocaine and Marcaine. After adequate analgesia an incision was made utilizing an old scar over the area of the abscess. Upon breaching the superficial tissue, abscess was immediately encountered with interruption of purulent material. Cultures were taken and sent for microbiology. The abscess was thoroughly decompressed followed by probing the extent of the periphery and then utilizing a dilute Betadine rinse with copious amounts of fluid. After this a Taylor drain was inserted into the wound followed by a single horizontal mattress to lightly approximate the skin edges. This was done with a 2-0 nylon. After this a Xeroform dressing was applied and subsequently 4 x 4's and a Kerlix wrap. The patient was then awakened from anesthesia and transferred to the PACU in stable condition
[2019-10-25] MEDS: VANCOMYCIN HCL 1,000 MG in DEXTROSE 5%-WATER 250 ML IV SCH ×2 (10:23→21:14)
[2019-10-25] MEDS: NICOTINE 7 MG/24 HR PATCH.TD24 TD SCH (10:23)
[2019-10-25] MEDS ORDERED: PIPERACILLIN/TAZOBACTAM 3.375 GM VIAL IV SCH (12:00)
[2019-10-25] MEDS ORDERED: LIDOCAINE 2% INJ-PF (20 MG/ML) 2 ML AMPUL ONE (12:34)
--- NOTE | 2019-10-25 13:29 | PDOC PROGRESS REPORT ---
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 Patient was seen on afternoon rounds following I&D by Dr. Desai. She was found resting in bed, comfortably, on room air. She complains of had pain and "heroin withdrawal." States she needs something to eat and some pain medication. Otherwise, she denies fever, chills, chest pain, palpitations, abdominal pain, nausea and vomiting. She has no other questions or concerns. No concerns per nursing. Reason For Visit: HAND ABCESS IVDU Physical Exam Vital Signs: Temp Pulse Resp BP Pulse Ox 98.9 F 95 20 130/80 H 100 10/25/19 10:30 10/25/19 10:30 10/25/19 10:30 10/25/19 10:30 10/25/19 10:30 Intake & Output 10/24/19 10/25/19 10/26/19 06:59 06:59 06:59 Intake Total 2049 2959 Output Total 1064 Balance 2049 189 Weight 62.9 kg General appearance: PRESENT: no acute distress, disheveled, well-developed, well-nourished Head exam: PRESENT: atraumatic, normocephalic Eye exam: PRESENT: conjunctiva pink, EOMI, PERRLA. ABSENT: scleral icterus Mouth exam: PRESENT: moist, tongue midline Teeth exam: PRESENT: poor dentation Respiratory exam: PRESENT: symmetrical, unlabored, wheezes. ABSENT: rales, rhonchi Cardiovascular exam: PRESENT: RRR, +S1, +S2. ABSENT: diastolic murmur, rubs, systolic murmur Pulses: PRESENT: normal dorsalis pedis pul Vascular exam: PRESENT: normal capillary refill Extremities exam: PRESENT: full ROM. ABSENT: calf tenderness, clubbing, pedal edema Neurological exam: PRESENT: alert, awake, oriented to person, oriented to place, oriented to time, oriented to situation, CN II-XII grossly intact. ABSENT: motor sensory deficit Psychiatric exam: PRESENT: appropriate affect, normal mood. ABSENT: homicidal ideation, suicidal ideation Skin exam: PRESENT: dry, warm, other - numerous shallow ulcerations and scabs to face and BLE. ABSENT: cyanosis, intact - surgical site with post-op dressing intact; slight, dry, blood noted., rash Results Laboratory Results: 10/25/19 05:20 10/24/19 21:15 10/24/19 10/24/19 10/24/19 21:15 21:15 21:15 WBC 6.8 RBC 4.28 Hgb 11.9 L Hct 35.7 L MCV 83 MCH 27.8 MCHC 33.4 RDW 14.4 H Plt Count 317 Seg Neutrophils % 93.2 H VBG pH VBG pCO2 VBG HCO3 VBG Base Excess Sodium 135.9 L Potassium 4.0 Chloride 105 Carbon Dioxide 22 Anion Gap 9 BUN 9 Creatinine 0.70 Est GFR ( Amer) > 60 Glucose 87 Lactic Acid 1.3 Calcium 8.9 Magnesium 1.8 Total Bilirubin 0.3 AST 27 Alkaline Phosphatase 84 Total Protein 7.1 Albumin 3.5 Serum HCG, Qual Urine Color Urine Appearance Urine pH Ur Specific [place] Urine Protein Urine Glucose (UA) Urine Ketones Urine Blood Urine Nitrite Ur Leukocyte Esterase Urine WBC (Auto) Urine RBC (Auto) 10/24/19 10/24/19 10/24/19 21:15 22:10 23:14 WBC RBC Hgb Hct MCV MCH MCHC RDW Plt Count Seg Neutrophils % VBG pH 7.34 VBG pCO2 43.3 VBG HCO3 22.7 VBG Base Excess -3.1 Sodium Potassium Chloride Carbon Dioxide Anion Gap BUN Creatinine Est GFR ( Amer) Glucose Lactic Acid Calcium Magnesium Total Bilirubin AST Alkaline Phosphatase Total Protein Albumin Serum HCG, Qual NEGATIVE Urine Color YELLOW Urine Appearance CLOUDY Urine pH 5.0 Ur Specific [place] 1.026 Urine Protein 100 H Urine Glucose (UA) NEGATIVE Urine Ketones NEGATIVE Urine Blood NEGATIVE Urine Nitrite NEGATIVE Ur Leukocyte Esterase SMALL H Urine WBC (Auto) 16 Urine RBC (Auto) 8 10/25/19 05:20 WBC 15.7 H D RBC 3.86 Hgb 10.7 L Hct 32.2 L MCV 83 MCH 27.7 MCHC 33.2 RDW 14.3 H Plt Count 305 Seg Neutrophils % 87.3 H VBG pH VBG pCO2 VBG HCO3 VBG Base Excess Sodium Potassium Chloride Carbon Dioxide Anion Gap BUN Creatinine Est GFR ( Amer) Glucose Lactic Acid Calcium Magnesium Total Bilirubin AST Alkaline Phosphatase Total Protein Albumin Serum HCG, Qual Urine Color Urine Appearance Urine pH Ur Specific [place] Urine Protein Urine Glucose (UA) Urine Ketones Urine Blood Urine Nitrite Ur Leukocyte Esterase Urine WBC (Auto) Urine RBC (Auto) Impressions: Chest X-Ray 10/24/19 20:46 IMPRESSION: No acute cardiopulmonary abnormalities. Hand X-Ray 10/24/19 20:46 IMPRESSION: Diffuse swelling of the dorsal and palmar aspect of the hand, possibly extending to the digits raising the concern for edema and/or cellulitis of uncertain etiology. Upper Extremity CT 10/24/19 21:14 IMPRESSION: 4 cm abscess overlying the dorsum of the left hand. Assessment and Plan - Diagnosis (1) Abscess of left hand Is this a current diagnosis for this admission?: Yes Plan: Now s/p I&D by Dr. Desai Wound care per his recommendations. Blood and wound cultures are pending. Continue empiric IV vancomycin, Rocephin Limited opiate use for pain management IV Toradol, PO Tylenol, elevation (2) Depression with anxiety Is this a current diagnosis for this admission?: Yes Plan: Stable. Patient denies need for SSRI/SNRI Consider BuSpar Consider mental health consultation (3) IV drug user Is this a current diagnosis for this admission?: Yes Plan: No cardiac murmur, minimize narcotics but wean preventing cortney withdrawal (4) Tobacco abuse Is this a current diagnosis for this admission?: Yes Plan: Tobacco cessation counseling performed, nicotine replacement options discussed. - Time Time Spent with patient: 15-24 minutes Medications reviewed and adjusted accordingly: Yes Anticipated discharge: Home
[2019-10-25] MEDS: OXYCODONE HCL IR 5 MG TABLET PO PRN (17:48)
[2019-10-25] MEDS ORDERED: CEFTRIAXONE 1 GM/D5W RTU 1 GM/50 ML RTUPB IV SCH (22:00)
[2019-10-26] MEDS: HEPARIN SOD (PORCINE) 5,000 UNIT/ML 1 ML VIAL SUBCUT SCH ×3 (06:00→21:36)
[2019-10-26 07:28] LABS: ABSOLUTE BASOPHILS # (AUTO) 0.1 10^3/uL (0.0-0.2); ABSOLUTE EOSINOPHILS # (AUTO) 0.3 10^3/uL (0.0-0.6); ABSOLUTE LYMPHOCYTES (AUTO) 2.2 10^3/uL (0.5-4.7); ABSOLUTE NEUT (AUTO) 5.5 10^3/uL (1.7-8.2); EOSINOPHILS % (AUTO) 3.7 % (0-6); HEMATOCRIT 31.1 % (36.0-47.0); HEMOGLOBIN 10.5 g/dL (12.0-15.5); LYMPHOCYTES % (AUTO) 24.3 % (13-45); MEAN CORPUSCULAR HGB CONC 33.7 g/dL (32.0-36.0); MEAN CORPUSCULAR VOLUME 83 fl (80-97); MONOCYTES % (AUTO) 11.3 % (3-13); PLATELET COUNT 292 10^3/uL (150-450); RED BLOOD COUNT 3.74 10^6/uL (3.72-5.28); RED CELL DISTRIBUTION WIDTH 14.5 % (11.5-14.0); SEGMENTED NEUTROPHILS % (AUTO) 59.7 % (42-78); TOTAL CELLS COUNTED % (AUTO) 100 %; WHITE BLOOD COUNT 9.2 10^3/uL (4.0-10.5)
[2019-10-26] MEDS: NICOTINE 7 MG/24 HR PATCH.TD24 TD SCH (09:56)
[2019-10-26] MEDS: VANCOMYCIN HCL 1,000 MG in DEXTROSE 5%-WATER 250 ML IV SCH ×2 (09:56→21:37)
--- NOTE | 2019-10-26 12:44 | PDOC PROGRESS REPORT ---
Subjective Progress Note for:: 10/26/19 Subjective:: Patient requests nicotine patch today. States that she feels well. Denies any trouble breathing. Has some pain at the site of I&D. Reason For Visit: HAND ABCESS IVDU Physical Exam Vital Signs: Temp Pulse Resp BP Pulse Ox 98.6 F 82 17 133/61 H 98 10/26/19 07:41 10/26/19 07:41 10/26/19 07:41 10/26/19 07:41 10/26/19 07:41 Intake & Output 10/25/19 10/26/19 10/27/19 06:59 06:59 06:59 Intake Total 2049 5189 Output Total 1184 Balance 2049 4005 Weight 62.9 kg 62.5 kg General appearance: PRESENT: no acute distress, cooperative Neck exam: ABSENT: JVD Respiratory exam: PRESENT: clear to auscultation balwinder, unlabored. ABSENT: tachypnea, wheezes Cardiovascular exam: PRESENT: RRR, +S1, +S2. ABSENT: tachycardia GI/Abdominal exam: PRESENT: soft. ABSENT: ascites, distended, hernia Extremities exam: PRESENT: other - HAnd wrapped in clean dressing Neurological exam: PRESENT: alert, awake Results Laboratory Results: 10/26/19 06:27 10/24/19 21:15 10/26/19 06:27 WBC 9.2 RBC 3.74 Hgb 10.5 L Hct 31.1 L MCV 83 MCH 28.0 MCHC 33.7 RDW 14.5 H Plt Count 292 Seg Neutrophils % 59.7 Impressions: Chest X-Ray 10/24/19 20:46 IMPRESSION: No acute cardiopulmonary abnormalities. Hand X-Ray 10/24/19 20:46 IMPRESSION: Diffuse swelling of the dorsal and palmar aspect of the hand, possibly extending to the digits raising the concern for edema and/or cellulitis of uncertain etiology. Upper Extremity CT 10/24/19 21:14 IMPRESSION: 4 cm abscess overlying the dorsum of the left hand. Assessment and Plan - Diagnosis (1) Abscess of left hand Is this a current diagnosis for this admission?: Yes Plan: s/p I&D by Dr. Desai Wound care per Dr. Desai. Wound culture growing gram-positive cocci I will discontinue ceftriaxone and continue patient on vancomycin. IV Toradol, PO oxycodone and Tylenol as needed, elevation Occupational therapy ordered (2) Depression with anxiety Is this a current diagnosis for this admission?: Yes Plan: Stable at this time (3) IV drug user Is this a current diagnosis for this admission?: Yes Plan: Monitor for withdrawal (4) Tobacco abuse Is this a current diagnosis for this admission?: Yes Plan: Nicotine patch offered - Time Time Spent with patient: Less than 15 minutes
[2019-10-26] MEDS: OXYCODONE HCL IR 5 MG TABLET PO PRN (19:27)
--- NOTE | 2019-10-26 21:29 | PDOC PROGRESS REPORT ---
Subjective Progress Note for:: 10/26/19 Subjective:: Patient is doing well. Reports improved pain and swelling in the left hand. Reason For Visit: HAND ABCESS IVDU Physical Exam Vital Signs: Temp Pulse Resp BP Pulse Ox 98.4 F 86 16 125/76 100 10/26/19 20:00 10/26/19 20:00 10/26/19 20:00 10/26/19 20:00 10/26/19 20:00 Intake & Output 10/25/19 10/26/19 10/27/19 06:59 06:59 06:59 Intake Total 2049 5189 490 Output Total 1184 Balance 2049 4005 490 Weight 62.9 kg 62.5 kg Physical Exam: AOx3, NAD LUE - Dressing intact, removed and changed at bedside today, some serosanguinous drainage in prior dressing. Improved erythema and swelling - NVI Results Laboratory Results: 10/26/19 06:27 10/24/19 21:15 10/26/19 06:27 WBC 9.2 RBC 3.74 Hgb 10.5 L Hct 31.1 L MCV 83 MCH 28.0 MCHC 33.7 RDW 14.5 H Plt Count 292 Seg Neutrophils % 59.7 Impressions: Chest X-Ray 10/24/19 20:46 IMPRESSION: No acute cardiopulmonary abnormalities. Hand X-Ray 10/24/19 20:46 IMPRESSION: Diffuse swelling of the dorsal and palmar aspect of the hand, possibly extending to the digits raising the concern for edema and/or cellulitis of uncertain etiology. Upper Extremity CT 10/24/19 21:14 IMPRESSION: 4 cm abscess overlying the dorsum of the left hand. Assessment & Plan - Diagnosis (1) Abscess of left hand Is this a current diagnosis for this admission?: Yes Plan: - Post op day 1 from L Hand I&D - Taylor drain removed today - Follow Cultures for final sensitivities - Will remove suture in office - Dressing Change as needed - Time Time Spent with patient: Less than 15 minutes
[2019-10-27] MEDS: HEPARIN SOD (PORCINE) 5,000 UNIT/ML 1 ML VIAL SUBCUT SCH (04:59)
[2019-10-27] MEDS: OXYCODONE HCL IR 5 MG TABLET PO PRN (05:15)
[2019-10-27] MEDS: NICOTINE 7 MG/24 HR PATCH.TD24 TD SCH (09:30)
[2019-10-27] MEDS: VANCOMYCIN HCL 1,000 MG in DEXTROSE 5%-WATER 250 ML IV SCH (09:30)
--- NOTE | 2019-10-27 12:31 | PDOC DISCHARGE SUMMARY ---
Impression - Admit/DC Date/PCP Admission Date/Primary Care Provider: 10/25/19 00:20 MARÍA RAMOS Discharge Date: 10/27/19 - Additional Information Resuscitation Status: Full Code Referrals: HARRIET JOHN JR, DO [ACTIVE PROVISIONAL STAFF] - (L hand abscess) Home Medications: No Home Medications 10/25/19 History of Present Illiness History of Present Illness: DALLAS AWAN is a 34 year old female Physical Exam Vital Signs: Temp Pulse Resp BP Pulse Ox 98.5 F 75 17 138/76 H 99 10/27/19 00:00 10/27/19 00:00 10/27/19 00:00 10/27/19 00:00 10/27/19 00:00 Intake & Output 10/26/19 10/27/19 10/28/19 06:59 06:59 06:59 Intake Total 5189 1220 Output Total 1184 Balance 4005 1220 Weight 62.5 kg 61.7 kg Results Laboratory Results: WBC 9.2 10^3/uL (4.0-10.5) 10/26/19 06:27 RBC 3.74 10^6/uL (3.72-5.28) 10/26/19 06:27 Hgb 10.5 g/dL (12.0-15.5) L 10/26/19 06:27 Hct 31.1 % (36.0-47.0) L 10/26/19 06:27 MCV 83 fl (80-97) 10/26/19 06:27 MCH 28.0 pg (27.0-33.4) 10/26/19 06:27 MCHC 33.7 g/dL (32.0-36.0) 10/26/19 06:27 RDW 14.5 % (11.5-14.0) H 10/26/19 06:27 Plt Count 292 10^3/uL (150-450) 10/26/19 06:27 Lymph % (Auto) 24.3 % (13-45) 10/26/19 06:27 [place] % (Auto) 11.3 % (3-13) 10/26/19 06:27 Eos % (Auto) 3.7 % (0-6) 10/26/19 06:27 Baso % (Auto) 1.0 % (0-2) 10/26/19 06:27 Absolute Neuts (auto) 5.5 10^3/uL (1.7-8.2) 10/26/19 06:27 Absolute Lymphs (auto) 2.2 10^3/uL (0.5-4.7) 10/26/19 06:27 Absolute Monos (auto) 1.0 10^3/uL (0.1-1.4) 10/26/19 06:27 Absolute Eos (auto) 0.3 10^3/uL (0.0-0.6) 10/26/19 06: Absolute Basos (auto) 0.1 10^3/uL (0.0-0.2) 10/26/19 06:27 Seg Neutrophils % 59.7 % (42-78) 10/26/19 06:27 VBG pH 7.34 (7.30-7.42) 10/24/19 22:10 VBG pCO2 43.3 mmHg (35-63) 10/24/19 22:10 VBG HCO3 22.7 mmol/L (20-32) 10/24/19 22:10 VBG Base Excess -3.1 mmol/L 10/24/19 22:10 Sodium 135.9 mmol/L (137-145) L 10/24/19 21:15 Potassium 4.0 mmol/L (3.6-5.0) 10/24/19 21:15 Chloride 105 mmol/L (98-107) 10/24/19 21:15 Carbon Dioxide 22 mmol/L (22-30) 10/24/19 21:15 Anion Gap 9 (5-19) 10/24/19 21:15 BUN 9 mg/dL (7-20) 10/24/19 21:15 Creatinine 0.70 mg/dL (0.52-1.25) 10/24/19 21:15 Est GFR ( Amer) > 60 (>60) 10/24/19 21:15 Est GFR (MDRD) Non-Af > 60 (>60) 10/24/19 21:15 Glucose 87 mg/dL (75-110) 10/24/19 21:15 Lactic Acid 1.3 mmol/L (0.7-2.1) 10/24/19 21:15 Calcium 8.9 mg/dL (8.4-10.2) 10/24/19 21:15 Magnesium 1.8 mg/dL (1.6-2.3) 10/24/19 21:15 Total Bilirubin 0.3 mg/dL (0.2-1.3) 10/24/19 21:15 Direct Bilirubin 0.0 mg/dL (0.0-0.4) 10/24/19 21:15 Neonat Total Bilirubin Not Reportable 10/24/19 21:15 Neonat Direct Bilirubin Not Reportable 10/24/19 21:15 Neonat Indirect Bili Not Reportable 10/24/19 21:15 AST 27 U/L (14-36) 10/24/19 21:15 ALT 24 U/L (<35) 10/24/19 21:15 Alkaline Phosphatase 84 U/L (38-126) 10/24/19 21:15 Total Protein 7.1 g/dL (6.3-8.2) 10/24/19 21:15 Albumin 3.5 g/dL (3.5-5.0) 10/24/19 21:15 Serum HCG, Qual NEGATIVE (NEGATIVE) 10/24/19 21:15 Urine Color YELLOW 10/24/19 23:14 Urine Appearance CLOUDY 10/24/19 23:14 Urine pH 5.0 (5.0-9.0) 10/24/19 23:14 Ur Specific [place] 1.026 10/24/19 23:14 Urine Protein 100 mg/dL (NEGATIVE) H 10/24/19 23:14 Urine Glucose (UA) NEGATIVE mg/dL (NEGATIVE) 10/24/19 23:14 Urine Ketones NEGATIVE mg/dL (NEGATIVE) 10/24/19 23:14 Urine Blood NEGATIVE (NEGATIVE) 10/24/19 23:14 Urine Nitrite NEGATIVE (NEGATIVE) 10/24/19 23:14 Urine Bilirubin NEGATIVE (NEGATIVE) 10/24/19 23:14 Urine Urobilinogen NEGATIVE mg/dL (<2.0) 10/24/19 23:14 Ur Leukocyte Esterase SMALL (NEGATIVE) H 10/24/19 23:14 Urine WBC (Auto) 16 /HPF 10/24/19 23:14 Urine RBC (Auto) 8 /HPF 10/24/19 23:14 U Hyaline Cast (Auto) 12 /LPF 10/24/19 23:14 Urine Bacteria (Auto) TRACE /HPF 10/24/19 23:14 Squamous Epi Cells Auto 20 /HPF 10/24/19 23:14 Urine Mucus (Auto) RARE /LPF 10/24/19 23:14 Urine Ascorbic Acid NEGATIVE (NEGATIVE) 10/24/19 23:14 Urine Opiates Screen UNCONFIRMED POSITIVE 10/24/19 23:14 Urine Methadone Screen NEGATIVE 10/24/19 23:14 Ur Barbiturates Screen NEGATIVE 10/24/19 23:14 Ur Phencyclidine Scrn NEGATIVE 10/24/19 23:14 Ur Amphetamines Screen 10/24/19 23:14 U Benzodiazepines Scrn NEGATIVE 10/24/19 23:14 Urine Cocaine Screen NEGATIVE 10/24/19 23:14 U Marijuana (THC) Screen UNCONFIRMED POSITIVE 10/24/19 23:14 Impressions: Chest X-Ray 10/24/19 20:46 IMPRESSION: No acute cardiopulmonary abnormalities. Hand X-Ray 10/24/19 20:46 IMPRESSION: Diffuse swelling of the dorsal and palmar aspect of the hand, possibly extending to the digits raising the concern for edema and/or cellulitis of uncertain etiology. Upper Extremity CT 10/24/19 21:14 IMPRESSION: 4 cm abscess overlying the dorsum of the left hand.
[2019-10-27 12:52] VITALS: BP 106/68
== END 2019-10-27 13:15 | disposition home or self-care (01) | DRG 603 ==
LOC: ER 20:23 → EH 10-25 00:20 → 4S 10-25 01:24
PROVIDERS: ADMIT Internal Medicine; ATTEND Hospitalist
PROC: 0H9GXZX Drainage of Left Hand Skin, External Approach, Diagnostic (ICD-10-PCS; principal; 2019-10-25 07:30)
DX: L02.512 Cutaneous abscess of left hand (principal); F15.10 Other stimulant abuse, uncomplicated; F11.19 Opioid abuse with unspecified opioid-induced disorder; F41.8 Other specified anxiety disorders; F17.200 Nicotine dependence, unspecified, uncomplicated
CPT/HCPCS: 00400; 36415; 71045; 80053; 80307; 81001; 82803; 83605; 83735; 84703; 85025; 87040; 87070; 87075; 87077; 87150; 87186; 87205; 93005; 93010; 94799; 96361; 96365; 99285; J0690; J0696; J1644; J1885; J2250; J2704; J3010; J3370; J3490; J7030; J7060

== ENCOUNTER 2020-06-02 17:04 | Emergency (ER) | payer SELFPAY ==
[2020-06-02 17:30] VITALS: BP 142/72
[2020-06-02] MEDS ORDERED: LIDOCAINE 1% INJ-PF (10 MG/ML) 30 ML SDV INJ ONE (17:41)
--- NOTE | 2020-06-02 17:44 | ER Document Report ---
ED Medical Screen (RME) - General Chief Complaint: Abscess Stated Complaint: ABSCESSES/LEFT AND RIGHT ARMS Time Seen by Provider: 06/02/20 17:37 Primary Care Provider: MARÍA RAMOS [Primary Care Provider] - Follow up as needed Mode of Arrival: Ambulatory Information source: Patient Notes: Patient is a 35-year-old female presenting with large abscesses to the right forearm and left AC region. She is an admitted heroin and methamphetamine abuser. Does not report any fevers or chills. No nausea or vomiting. She does not has history of diabetes or immune compromise. General: Unkempt, older appearing than stated age Dermatologic: Large semifluctuant abscess dorsal aspect right forearm, large semifluctuant indurated abscess left AC region. Distal neurovascular exam is intact I have greeted and performed a rapid initial assessment of this patient. A comprehensive ED assessment and evaluation of the patient, analysis of test results and completion of the medical decision making process will be conducted by additional ED providers. TRAVEL OUTSIDE OF THE [place] IN LAST 30 DAYS: No - Related Data Allergies/Adverse Reactions: No Known Allergies Allergy (Verified 06/02/20 17:35) Past Medical History - Past Medical History Cardiac Medical History: Reports: Hx Atrial Fibrillation Denies: Hx Coronary Artery Disease, Hx Heart Attack, Hx Hypertension Pulmonary Medical History: Denies: Hx Asthma, Hx Bronchitis, Hx COPD, Hx Pneumonia Neurological Medical History: Denies: Hx Cerebrovascular Accident Renal/ Medical History: Denies: Hx Peritoneal Dialysis Musculoskeltal Medical History: Denies Hx Arthritis Psychiatric Medical History: Reports: Hx Bipolar Disorder, Hx Depression Past Surgical History: Reports: Hx Tubal Ligation - Immunizations Hx Diphtheria, Pertussis, Tetanus Vaccination: No Physical Exam - Vital signs Vitals: Temp Pulse Resp BP Pulse Ox 99.3 F 86 16 142/72 H 100 06/02/20 17:28 06/02/20 17:28 06/02/20 17:28 06/02/20 17:28 06/02/20 17:28 Course - Vital Signs Vital signs: Temp Pulse Resp BP Pulse Ox 99.3 F 86 16 142/72 H 100 06/02/20 17:28 06/02/20 17:28 06/02/20 17:28 06/02/20 17:28 06/02/20 17:28 Doctor's Discharge - Discharge Referrals: MARÍA RAMOS [Primary Care Provider] - Follow up as needed
== END 2020-06-02 22:20 | disposition left against medical advice (07) ==
LOC: ER 17:04
DX: L02.414 Cutaneous abscess of left upper limb (principal); F11.10 Opioid abuse, uncomplicated; F15.10 Other stimulant abuse, uncomplicated; Z53.20 Procedure and treatment not carried out because of patient's decision for unspecified reasons
CPT/HCPCS: 99281